=== PATIENT | male | born 1950 | race Caucasian/White ===

== ENCOUNTER → 2018-10-23 | Day surgery (SDC) | payer MEDICARE, BC ==
[~2018-10-23] MED LIST: Lactated Ringers 1,000 ML IV SCH; Midazolam 1 MG/ML 2 ML SDV ONE; Propofol 200 MG/20 ML SDV ONE; Sodium Chloride 0.9% 10 ML Syringe FLUSH PRN
--- NOTE | 2018-10-23 10:01 | PCM.PN ---
- General Info Date of Service: 10/23/18 - Review of Systems Systems Review Comment:: 68-year-old male referred for colonoscopy. It is been several years since his last colon exam. He denies any recent changes in bowel pattern. He also denies any family history of colon cancer. He is medically stable to proceed today. I reviewed the recent history and physical and no significant changes are noted. I discussed the proposed colonoscopy with the patient. Risks such as but not limited to bleeding and GI injury reviewed. He agrees to proceed. - Patient Data Vitals - Most Recent: Last Vital Signs Temp 97. F 10/23/18 09:33 Pulse 70 10/23/18 09:33 Resp 16 10/23/18 09:33 BP 133/86 10/23/18 09:33 Pulse Ox 99 10/23/18 09:33 Weight - Most Recent: 117.027 kg Med Orders - Current: Current Medications Lactated Ringer's (Ringers, Lactated) 1,000 mls @ 125 mls/hr IV ASDIRECTED SVEN Sodium Chloride (Saline Flush) 10 ml FLUSH ASDIRECTED PRN PRN Reason: Keep Vein Open Discontinued Medications Midazolam HCl (Versed 1 Mg/Ml) Confirm Administered Dose 2 mg .ROUTE .STK-MED ONE Stop: 10/23/18 08:21 Propofol (Diprivan 20 Ml) Confirm Administered Dose 200 mg .ROUTE .STK-MED ONE Stop: 10/23/18 08:21 - Problem List Review Problem List Initiated/Reviewed/Updated: Yes - Assessment Assessment:: colon cancer screening - Plan Plan:: colonoscopy
--- NOTE | 2018-10-23 10:47 | PCM.OPNOTE ---
- General Post-Op/Procedure Note Date of Surgery/Procedure: 10/23/18 Operative Procedure(s): Colonoscopy with Polypectomy Findings: Sigmoid Colon Polyp otherwise normal polyp Pre Op Diagnosis: Colon Cancer Screening Post-Op Diagnosis: Colon Polyp Anesthesia Technique: MAC Primary Surgeon: Avel Corley Pathology: Sigmoid Colon Polyp Output, Urine Amount: 0 EBL in mLs: 0 Complications: None Condition: Good
--- NOTE | 2018-10-23 12:11 | OR ---
Date of Procedure: 10/23/2018 PREOPERATIVE DIAGNOSIS: Colon cancer screening. POSTOPERATIVE DIAGNOSIS: Colon polyp. OPERATION PERFORMED: Colonoscopy with polypectomy. INDICATIONS FOR SURGERY: This 68-year-old male is here for screening colonoscopy. It has been several years since his last colon exam. FINDINGS: A single polyp was noted on today's exam. This was a 9 mm sessile slightly irregularly-shaped polyp noted in the sigmoid colon 30 cm from the anal verge. The remainder of the colon appeared normal. DESCRIPTION OF PROCEDURE: The patient was taken to the operating room. He was given intravenous sedation, and with him in the left lateral decubitus position, digital rectal exam was performed showing no rectal masses. The Olympus colonoscope was inserted into the rectum. Retroflexed examination of the rectal canal was performed. The scope was then carefully advanced up to the sigmoid level where the above-described polyp was identified. This was removed with a cautery snare and retrieved into a polyp trap. The scope was then carefully further advanced through the entire length of the colon until the cecum was reached. The acquisition of the cecum did require hand pressure, but eventually was able to be accessed and the cecum carefully examined. The ileocecal valve and appendiceal orifice were viewed and the light was noted to transilluminate the abdominal wall in the right lower quadrant. After examining the cecum, the scope was slowly withdrawn sequentially re-examining the colonic segments until the entire colon and rectum had been fully examined. The scope was removed, and the patient was taken from the operating room in satisfactory condition. ESTIMATED BLOOD LOSS: 0. COMPLICATIONS: None. PROGNOSIS: Good. CHAGO Corley MD /[id number]
== END | disposition home or self-care (01) ==
LOC: LL.SDS 09:10
PROVIDERS: ATTEND Surgery
DX: Z12.11 Encounter for screening for malignant neoplasm of colon (principal); D12.5 Benign neoplasm of sigmoid colon; I10 Essential (primary) hypertension; E78.5 Hyperlipidemia, unspecified; R73.9 Hyperglycemia, unspecified; E55.9 Vitamin D deficiency, unspecified; F32.9 Major depressive disorder, single episode, unspecified; F41.9 Anxiety disorder, unspecified; I69.354 Hemiplegia and hemiparesis following cerebral infarction affecting left non-dominant side; E66.9 Obesity, unspecified; Z68.38 Body mass index [BMI] 38.0-38.9, adult; Z79.82 Long term (current) use of aspirin; Z79.899 Other long term (current) drug therapy; Z88.1 Allergy status to other antibiotic agents; Z88.8 Allergy status to other drugs, medicaments and biological substances; Z95.1 Presence of aortocoronary bypass graft
CPT/HCPCS: 00811; 45385; J2250; J2704; J7120; 88305

== ENCOUNTER 2019-03-03 11:32 | Inpatient (IN) | payer MEDICARE, BC ==
[2019-03-03 12:03] LABS: CHLORIDE,CL 102 mmol/L (98-107); SODIUM,NA 141 mmol/L (136-145)
[2019-03-03] MEDS ORDERED: Acetaminophen 325 MG Tab PO PRN (13:00)
--- NOTE | 2019-03-03 13:27 | PCM.HP.2 ---
H&P History of Present Illness - General Date of Service: 03/03/19 Admit Problem/Dx: Admission Diagnosis/Problem Admission Diagnosis/Problem Acute renal failure Source of Information: Patient History Limitations: Reports: No Limitations - History of Present Illness Initial Comments - Free Text/Narative: Patient presents to the clinic with lower abdominal pain which started 2 weeks ago. Patient states the pain is alright in the morning but then will get worse throughout the day. Patient states having more bowel movements than usually. Last colonoscopy was 10/2018 where he had a polyp removed. Denies a fever. Patient states eating a lot of tomatoes lately. Onset of Symptoms: Reports: Gradual Duration of Symptoms: Reports: Getting Worse Location: Reports: Abdomen Quality: Reports: Ache Severity: Mild Improves with: Reports: Rest Worsens with: Reports: Movement - Related Data Allergies/Adverse Reactions: Allergies Allergy/AdvReac Type Severity Reaction Status Date / Time amoxicillin [From Augmentin] Allergy Diarrhea Verified 03/03/19 12:36 atorvastatin [From Lipitor] Allergy Body Aches Verified 03/03/19 12:36 azithromycin [From Zithromax] Allergy Arrhythmias Verified 03/03/19 12:36 ceftriaxone [From Rocephin] Allergy Hives Verified 03/03/19 12:36 clavulanic acid Allergy Diarrhea Verified 03/03/19 12:36 [From Augmentin] Home Medications: Home Meds Ascorbic Acid [Vitamin C] 1,000 mg PO DAILY 07/11/15 [History] Aspirin [Halfprin] 1 tab PO DAILY 07/11/15 [History] Citalopram Hydrobromide [Celexa] 20 mg PO DAILY 07/11/15 [History] Simvastatin [Zocor] 40 mg PO BEDTIME 07/11/15 [History] Chlorthalidone 25 mg PO DAILY 10/22/18 [History] Fenofibrate,Micronized [Fenofibrate] 134 mg PO DAILY 10/22/18 [History] Lisinopril 20 mg PO BID 10/22/18 [History] Metoprolol Tartrate 50 mg PO BID 10/22/18 [History] Tadalafil [Cialis] 10 mg PO DAILY PRN 10/22/18 [History] Ubidecarenone [Co Q-10] 2 tab PO DAILY 10/22/18 [History] Cetirizine HCl [Zyrtec] 10 mg PO DAILY 03/03/19 [History] Cholecalciferol (Vitamin D3) [Vitamin D3] 2,000 unit PO DAILY 03/03/19 [History] Ciclopirox/Ure/Camph/Menth/Euc [Ciclopirox 8% Treatment Kit] 1 applic TP DAILY PRN 03/03/19 [History] Fish Oil/DHA/EPA [Fish Oil 1,200 MG] 4 each PO DAILY 03/03/19 [History] Fluticasone Propionate [Flonase] 1 - 2 sprays .XX DAILY 03/03/19 [History] Vitamin E 1,000 unit PO DAILY 03/03/19 [History] Past Medical History Cardiovascular History: Reports: Heart Murmur, High Cholesterol, Hypertension Other Cardiovascular History: aoritic mass, had open heart surgery 1999. PVC's , bigeminy Respiratory History: Reports: Sleep Apnea Genitourinary History: Reports: Other (See Below) Other Genitourinary History: Elevated PSA with benign biopsies. Musculoskeletal History: Reports: Other (See Below) Other Musculoskeletal History: dupytrens contraction Neurological History: Reports: CVA Other Neuro History: Left sided CVA Psychiatric History: Reports: Anxiety, Depression Endocrine/Metabolic History: Reports: Obesity/BMI 30+, Vitamin D Deficiency, Other (See Below) Other Endocrine/Metabolic History: hyperglycemia - Infectious Disease History Infectious Disease History: Reports: Chicken Pox, Measles, MRSA, Mumps - Past Surgical History Other Respiratory Surgeries/Procedures: uses cpap Social & Family History - Caffeine Use Caffeine Use: Reports: Coffee Caffeine Use Comment: 1 cup coffee daily, 1 soda per week H&P Review of Systems - Review of Systems: Review Of Systems: See Below General: Reports: Weakness HEENT: Reports: No Symptoms Pulmonary: Reports: No Symptoms Cardiovascular: Reports: No Symptoms Gastrointestinal: Reports: Abdominal Pain, Flatus Genitourinary: Reports: Frequency Musculoskeletal: Reports: No Symptoms Skin: Reports: No Symptoms Psychiatric: Reports: No Symptoms Neurological: Reports: No Symptoms Hematologic/Lymphatic: Reports: No Symptoms Immunologic: Reports: No Symptoms Exam - Exam Exam: See Below - Exam Quality Assessment: DVT Prophylaxis General: Alert, Oriented, Cooperative HEENT: Conjunctiva Clear, EACs Clear, EOMI (hearing aids to bilat ears) Neck: Supple, Trachea Midline Lungs: Clear to Auscultation, Normal Respiratory Effort Cardiovascular: Regular Rate, Regular Rhythm, Normal S1, Normal S2, Systolic Murmur GI/Abdominal Exam: Normal Bowel Sounds, Soft, No Distention, Tender (tender to all quadrants, more pronouced to left lower quadrant) Back Exam: Normal Inspection, Full Range of Motion Extremities: Normal Inspection, Normal Range of Motion, Non-Tender, No Pedal Edema, Normal Capillary Refill Peripheral Pulses: 1+: Dorsalis Pedis (L), Dorsalis Pedis (R) Skin: Warm, Dry, Intact Neurological: Cranial Nerves Intact, Reflexes Equal Bilateral Neuro Extensive - Mental Status: Alert, Oriented x3, Normal Mood/Affect, Normal Cognition, Memory Intact Neuro Extensive - Motor, Sensory, Reflexes: CN II-XII Intact, Normal Gait, Normal Reflexes Psychiatric: Alert, Normal Affect, Normal Mood - Patient Data Lab Results Last 24 hrs: Laboratory Results - last 24 hr 03/03/19 03/03/19 Range/Units 11:39 11:39 WBC 7.8 (4.0-10.2) K/uL RBC 3.84 L (4.33-5.41) M/uL Hgb 12.6 L D (13.1-16.8) g/dL Hct 37.3 L (39.0-49.0) % MCV 97.1 D (84.0-98.0) fL MCH 32.8 (28.2-33.3) pg MCHC 33.8 (31.7-36.0) g/dL RDW 13.0 (11.2-14.1) % Plt Count 261 (150-350) K/uL Neut % (Auto) 62.3 (45.0-80.0) % Lymph % (Auto) 20.5 (10.0-50.0) % [place] % (Auto) 13.9 (2.0-14.0) % Eos % (Auto) 3.0 (0.0-5.0) % Baso % (Auto) 0.3 (0.0-2.0) % Neut # (Auto) 4.84 (1.40-7.00) K/uL Lymph # (Auto) 1.59 (0.50-3.50) K/uL [place] # (Auto) 1.08 H (0.00-1.00) K/uL Eos # (Auto) 0.23 (0.00-0.50) K/uL Baso # (Auto) 0.02 (0.00-0.20) K/uL Sodium 141 (136-145) mmol/L Potassium 4.3 (3.5-5.1) mmol/L Chloride 102 (98-107) mmol/L Carbon Dioxide 29.0 (21.0-32.0) mmol/L BUN 31 H (7-18) mg/dL Creatinine 2.43 H D (0.51-1.17) mg/dL Est Cr Clr Drug Dosing TNP Estimated GFR (MDRD) 27 mL/min Glucose 99 (74-106) mg/dL Calcium 10.1 (8.5-10.1) mg/dL Total Bilirubin 0.6 (0.2-1.0) mg/dL AST 14 L (15-37) U/L ALT 23 (12-78) U/L Alkaline Phosphatase 42 L (46-116) IU/L C-Reactive Protein 0.4 (<=0.9) mg/dL Total Protein 7.5 (6.4-8.2) g/dL Albumin 4.1 (3.4-5.0) g/dL Result Diagrams: 03/03/19 11:39 03/03/19 11:39 - Problem List (1) Acute renal failure (ARF) SNOMED Code(s): 95694117 ICD Code: N17.9 - ACUTE KIDNEY FAILURE, UNSPECIFIED Status: Acute Current Visit: Yes Qualifiers: Acute renal failure type: unspecified Qualified Code(s): N17.9 - Acute kidney failure, unspecified (2) Abdominal pain SNOMED Code(s): 54080765 ICD Code: R10.9 - UNSPECIFIED ABDOMINAL PAIN Status: Acute Current Visit : Yes Qualifiers: Abdominal location: lower abdomen, unspecified Qualified Code(s): R10.30 - Lower abdominal pain, unspecified (3) Hypertension SNOMED Code(s): 09882453 ICD Code: I10 - ESSENTIAL (PRIMARY) HYPERTENSION Status: Acute Current Visit: Yes Qualifiers: Hypertension type: essential hypertension Qualified Code(s): I10 - Essential (primary) hypertension Problem List Initiated/Reviewed/Updated: Yes Orders Last 24hrs: Active Orders 24 hr Category Date Time Status Patient Status [ADT] Routine ADT 03/03/19 12:46 Ordered Ambulate [RC] ASDIRECTED Care 03/03/19 12:46 Ordered Intake and Output [RC] QSHIFT Care 03/03/19 12:49 Ordered May Shower [RC] ASDIRECTED Care 03/03/19 12:46 Ordered Oxygen Therapy [RC] PRN Care 03/03/19 12:46 Ordered Peripheral IV Care [RC] . DIRECTED Care 03/03/19 12:52 Ordered Up ad Ángela [RC] ASDIRECTED Care 03/03/19 12:46 Ordered VTE/DVT Education [RC] PER UNIT ROUTINE Care 03/03/19 12:46 Ordered Vital Signs [RC] Q4H Care 03/03/19 12:46 Ordered Regular Diet [DIET] Diet 03/04/19 Breakfast Ordered Abdomen 2V AP Flat Upright [CR] Routine Exams 03/03/19 11:30 Taken Abdomen Comp [US] Routine Exams 03/03/19 12:46 Ordered C-REACTIVE PROTEIN [CHEM] DAILY Lab 03/04/19 05:11 Ordered CBC WITH AUTO DIFF [HEME] DAILY Lab 03/04/19 05:11 Ordered CBC WITH AUTO DIFF [HEME] DAILY Lab 03/05/19 05:11 Ordered CBC WITH AUTO DIFF [HEME] DAILY Lab 03/06/19 05:11 Ordered CBC WITH AUTO DIFF [HEME] DAILY Lab 03/07/19 05:11 Ordered COMPREHENSIVE METABOLIC PN,CMP [CHEM] DAILY Lab 03/04/19 05:11 Ordered COMPREHENSIVE METABOLIC PN,CMP [CHEM] DAILY Lab 03/05/19 05:11 Ordered COMPREHENSIVE METABOLIC PN,CMP [CHEM] DAILY Lab 03/06/19 05:11 Ordered COMPREHENSIVE METABOLIC PN,CMP [CHEM] DAILY Lab 03/07/19 05:11 Ordered MAGNESIUM [CHEM] Routine Lab 03/04/19 05:11 Ordered Acetaminophen [Tylenol] Med 03/03/19 12:46 Ordered 650 mg PO Q4H PRN Aspirin [Halfprin] Med 03/04/19 08:00 Ordered 81 mg PO DAILY Citalopram Hydrobromide [Celexa] Med 03/04/19 08:00 Ordered 20 mg PO DAILY Enoxaparin [Lovenox] Med 03/03/19 17:00 Ordered 30 mg SUBCUT DAILY Fluticasone Propionate [Flonase] Med 03/04/19 08:00 Ordered 1 - 2 sprays .XX DAILY Lactated Ringers @ 125 MLS/HR(1000ml) Med 03/03/19 13:00 Ordered Lactated Ringers [Ringers, Lactated] 1,000 ml IV ASDIRECTED Metoprolol Tartrate [Lopressor] Med 03/03/19 18:00 Ordered 50 mg PO BID Sodium Chloride 0.9% [Saline Flush] Med 03/03/19 12:46 Ordered 10 ml FLUSH ASDIRECTED PRN Peripheral IV Insertion Adult [OM.PC] Routine Oth 03/03/19 12:46 Ordered Resuscitation Status Routine Resus Stat 03/03/19 12:46 Ordered Medication Orders Acetaminophen (Tylenol) 650 mg PO Q4H PRN PRN Reason: Pain (Mild 1-3)/fever Aspirin (Halfprin) 81 mg PO DAILY SVEN Enoxaparin Sodium (Lovenox) 30 mg SUBCUT DAILY@1700 SVEN Fluticasone Propionate (Flonase) gm .XX DAILY SVEN Lactated Ringer's (Ringers, Lactated) 1,000 mls @ 125 mls/hr IV ASDIRECTED SVEN Metoprolol Tartrate (Lopressor) 50 mg PO BID SVEN Non-Formulary Medication (Citalopram Hydrobromide [Celexa]) 20 mg PO DAILY SVEN Sodium Chloride (Saline Flush) 10 ml FLUSH ASDIRECTED PRN PRN Reason: Keep Vein Open Assessment/Plan Comment:: Patient is admitted for IV fluids due to acute renal failure. Will hold lisinopril and chlorthalidone, patient took the medications today. Will order abdominal ultrasound to check for blockage within the kidneys and bladder. Patient will probably need CT scan to further evaluate, will hydrate to see if kidney function will improve. Will monitor blood pressures due to change in medications. Recheck labs in the morning. Patient agreed to hospitalization in [place] but if condition declines is wanting to be transferred to [place]. Karina Mcfarland CNP - Mortality Measure Prognosis:: Good
[2019-03-03] MEDS: Lactated Ringers 1,000 ML IV SCH ×2 (14:10→22:11)
[2019-03-03] MEDS ORDERED: Enoxaparin 30 MG/0.3 ML Syringe SUBCUT SCH (17:00)
[2019-03-03] MEDS: Metoprolol Tartrate 50 MG Tab PO SCH (17:37)
[2019-03-03] MEDS ORDERED: Temazepam 15 MG Cap PO PRN (21:43)
[2019-03-04] MEDS: Lactated Ringers 1,000 ML IV SCH ×2 (06:29→14:44)
[2019-03-04] MEDS ORDERED: Aspirin 81 MG Tab.EC PO SCH (08:00)
[2019-03-04] MEDS ORDERED: Citalopram 20 MG Tab PO SCH (08:00)
[2019-03-04] MEDS: Fluticasone Propionate Nasal Spray 16 GM Bottle NASBOTH SCH (08:21)
[2019-03-04] MEDS: Metoprolol Tartrate 50 MG Tab PO SCH ×2 (08:21→17:28)
[2019-03-04] MEDS ORDERED: Diatrizoate Meglumine/Diatrizoate Sodium 37% 30 ML Bottle PO ONE (09:53)
[2019-03-04] MEDS ORDERED: Cyanocobalamin (Vitamin B12) 1,000 MCG/ML SDV IM ONE (14:30)
--- NOTE | 2019-03-04 17:04 | PCM.PN ---
- General Info Date of Service: 03/04/19 Admission Dx/Problem (Free Text): Admission Diagnosis/Problem Admission Diagnosis/Problem Acute renal failure Functional Status: Reports: Pain Controlled, Tolerating Diet, Ambulating - Review of Systems General: Reports: No Symptoms HEENT: Reports: No Symptoms Pulmonary: Reports: No Symptoms Cardiovascular: Reports: No Symptoms Gastrointestinal: Reports: Diarrhea Genitourinary: Reports: No Symptoms Musculoskeletal: Reports: No Symptoms Skin: Reports: No Symptoms Neurological: Reports: No Symptoms Psychiatric: Reports: No Symptoms - Patient Data Vitals - Most Recent: Last Vital Signs Temp 98.2 F 03/04/19 15:49 Pulse 69 03/04/19 15:49 Resp 17 03/04/19 15:49 BP 133/67 03/04/19 15:49 Pulse Ox 99 03/04/19 15:49 Weight - Most Recent: 257 lb 11.2 oz I&O - Last 24 Hours: Intake & Output 03/04/19 03/04/19 03/04/19 06:59 14:59 22:59 Intake Total 1564 Output Total 1400 Balance 1564 -1400 Lab Results Last 24 Hours: Laboratory Results - last 24 hr 03/04/19 03/04/19 03/04/19 Range/Units 07:05 07:05 07:05 WBC 6.2 (4.0-10.2) K/uL RBC 3.47 L (4.33-5.41) M/uL Hgb 11.3 L (13.1-16.8) g/dL Hct 33.6 L (39.0-49.0) % MCV 96.8 (84.0-98.0) fL MCH 32.6 (28.2-33.3) pg MCHC 33.6 (31.7-36.0) g/dL RDW 12.7 (11.2-14.1) % Plt Count 224 (150-350) K/uL Neut % (Auto) 59.9 (45.0-80.0) % Lymph % (Auto) 24.2 (10.0-50.0) % [place] % (Auto) 12.3 (2.0-14.0) % Eos % (Auto) 3.1 (0.0-5.0) % Baso % (Auto) 0.5 (0.0-2.0) % Neut # (Auto) 3.72 (1.40-7.00) K/uL Lymph # (Auto) 1.50 (0.50-3.50) K/uL [place] # (Auto) 0.76 (0.00-1.00) K/uL Eos # (Auto) 0.19 (0.00-0.50) K/uL Baso # (Auto) 0.03 (0.00-0.20) K/uL Sodium 139 (136-145) mmol/L Potassium 3.7 (3.5-5.1) mmol/L Chloride 101 (98-107) mmol/L Carbon Dioxide 25.0 (21.0-32.0) mmol/L BUN 30 H (7-18) mg/dL Creatinine 1.79 H (0.51-1.17) mg/dL Est Cr Clr Drug Dosing 39.50 mL/min Estimated GFR (MDRD) 38 mL/min Glucose 104 (74-106) mg/dL Lactic Acid 0.9 (0.4-2.0) mmol/L Calcium 9.1 (8.5-10.1) mg/dL Magnesium 1.5 L (1.8-2.4) mg/dL Iron (50-175) ug/dL TIBC (250-450) ug/dL % Saturation Ferritin (8-388) ng/mL Total Bilirubin 0.6 (0.2-1.0) mg/dL AST 12 L (15-37) U/L ALT 19 (12-78) U/L Alkaline Phosphatase 34 L (46-116) IU/L Creatine Kinase 52 (26-308) U/L C-Reactive Protein 0.4 (<=0.9) mg/dL Total Protein 6.4 (6.4-8.2) g/dL Albumin 3.5 (3.4-5.0) g/dL Vitamin B12 (193-986) pg/mL Vitamin D 25-Hydroxy (30-100) ng/mL Folate (8.6-58.9) ng/mL 03/04/19 03/04/19 03/04/19 Range/Units 07:05 07:05 07:05 WBC (4.0-10.2) K/uL RBC (4.33-5.41) M/uL Hgb (13.1-16.8) g/dL Hct (39.0-49.0) % MCV (84.0-98.0) fL MCH (28.2-33.3) pg MCHC (31.7-36.0) g/dL RDW (11.2-14.1) % Plt Count (150-350) K/uL Neut % (Auto) (45.0-80.0) % Lymph % (Auto) (10.0-50.0) % [place] % (Auto) (2.0-14.0) % Eos % (Auto) (0.0-5.0) % Baso % (Auto) (0.0-2.0) % Neut # (Auto) (1.40-7.00) K/uL Lymph # (Auto) (0.50-3.50) K/uL [place] # (Auto) (0.00-1.00) K/uL Eos # (Auto) (0.00-0.50) K/uL Baso # (Auto) (0.00-0.20) K/uL Sodium (136-145) mmol/L Potassium (3.5-5.1) mmol/L Chloride (98-107) mmol/L Carbon Dioxide (21.0-32.0) mmol/L BUN (7-18) mg/dL Creatinine (0.51-1.17) mg/dL Est Cr Clr Drug Dosing mL/min Estimated GFR (MDRD) mL/min Glucose (74-106) mg/dL Lactic Acid (0.4-2.0) mmol/L Calcium (8.5-10.1) mg/dL Magnesium (1.8-2.4) mg/dL Iron 84 (50-175) ug/dL TIBC 340 (250-450) ug/dL % Saturation [id number] Ferritin 289 (8-388) ng/mL Total Bilirubin (0.2-1.0) mg/dL AST (15-37) U/L ALT (12-78) U/L Alkaline Phosphatase (46-116) IU/L Creatine Kinase (26-308) U/L C-Reactive Protein (<=0.9) mg/dL Total Protein (6.4-8.2) g/dL Albumin (3.4-5.0) g/dL Vitamin B12 223 (193-986) pg/mL Vitamin D 25-Hydroxy 42.1 (30-100) ng/mL Folate 14.7 (8.6-58.9) ng/mL Med Orders - Current: Current Medications Acetaminophen (Tylenol) 650 mg PO Q4H PRN PRN Reason: Pain (Mild 1-3)/fever Citalopram Hydrobromide (Celexa) 20 mg PO DAILY [facility] Last Admin: 03/04/19 08:21 Dose: 20 mg Fluticasone Propionate (Flonase) 0 gm NASBOTH DAILY [facility] Last Admin: 03/04/19 08:21 Dose: 1 spray Lactated Ringer's (Ringers, Lactated) 1,000 mls @ 125 mls/hr IV ASDIRECTED [facility], [facility]1983 Last Admin: 03/04/19 14:44 Dose: 125 mls/hr Metoprolol Tartrate (Lopressor) 50 mg PO BID [facility] Last Admin: 03/04/19 08:21 Dose: 50 mg Sodium Chloride (Saline Flush) 10 ml FLUSH ASDIRECTED PRN PRN Reason: Keep Vein Open Discontinued Medications Aspirin (Halfprin) 81 mg PO DAILY [facility] Cyanocobalamin (Vitamin B12) 1,000 mcg IM ONETIME ONE Stop: 03/04/19 14:31 Last Admin: 03/04/19 15:24 Dose: 1,000 mcg Diatrizoate Meglum/Diatrizoate Sod (Gastrografin 37%) 30 ml PO ONETIME ONE Stop: 03/04/19 09:54 Last Admin: 03/04/19 11:40 Dose: 30 ml Enoxaparin Sodium (Lovenox) 30 mg SUBCUT DAILY@1700 [facility] Last Admin: 03/03/19 17:37 Dose: 30 mg - Exam Quality Assessment: DVT Prophylaxis General: Alert, Oriented, Cooperative, No Acute Distress HEENT: Pupils Equal, Pupils Reactive, EOMI, Mucous Membr. Moist/[place] Neck: Supple, Trachea Midline, No JVD, No Thyromegaly Lungs: Clear to Auscultation, Normal Respiratory Effort Cardiovascular: Regular Rate, Regular Rhythm GI/Abdominal Exam: Normal Bowel Sounds, Soft, No Organomegaly, No Distention, Tender (tender to lower abdominal areas bilat) Extremities: Normal Inspection, Normal Range of Motion, Non-Tender, No Pedal Edema, Normal Capillary Refill Peripheral Pulses: 1+: Dorsalis Pedis (L), Dorsalis Pedis (R) Skin: Warm, Dry, Intact Neurological: No New Focal Deficit Psy/Mental Status: Alert, Normal Affect, Normal Mood - Problem List & Annotations (1) Acute renal failure (ARF) SNOMED Code(s): 59377846 Code(s): N17.9 - ACUTE KIDNEY FAILURE, UNSPECIFIED Status: Acute Current Visit: Yes Qualifiers: Acute renal failure type: unspecified Qualified Code(s): N17.9 - Acute kidney failure, unspecified (2) Abdominal pain SNOMED Code(s): 66954500 Code(s): R10.9 - UNSPECIFIED ABDOMINAL PAIN Status: Acute Current Visit: Yes Qualifiers: Abdominal location: lower abdomen, unspecified Qualified Code(s): R10.30 - Lower abdominal pain, unspecified (3) Hypertension SNOMED Code(s): 82351077 Code(s): I10 - ESSENTIAL (PRIMARY) HYPERTENSION Status: Acute Current Visit: Yes Qualifiers: Hypertension type: essential hypertension Qualified Code(s): I10 - Essential (primary) hypertension - Problem List Review Problem List Initiated/Reviewed/Updated: Yes - My Orders Last 24 Hours: My Active Orders 03/03/19 18:00 Metoprolol Tartrate [Lopressor] 50 mg PO BID 03/03/19 Dinner Regular Diet [DIET] 03/04/19 08:00 Citalopram [Celexa] 20 mg PO DAILY Fluticasone Propionate [Flonase] 0 gm NASBOTH DAILY 03/05/19 05:11 CBC WITH AUTO DIFF [HEME] DAILY COMPREHENSIVE METABOLIC PN,CMP [CHEM] DAILY 03/06/19 05:11 CBC WITH AUTO DIFF [HEME] DAILY COMPREHENSIVE METABOLIC PN,CMP [CHEM] DAILY 03/07/19 05:11 CBC WITH AUTO DIFF [HEME] DAILY COMPREHENSIVE METABOLIC PN,CMP [CHEM] DAILY - Plan Plan:: Patient is admitted for IV fluids due to acute renal failure. Will hold lisinopril and chlorthalidone, patient took the medications today. Will order abdominal ultrasound to check for blockage within the kidneys and bladder. Patient will probably need CT scan to further evaluate, will hydrate to see if kidney function will improve. Will monitor blood pressures due to change in medications. Recheck labs in the morning. Patient agreed to hospitalization in [place] but if condition declines is wanting to be transferred to [place]. Karina Mcfarland CNP 03/04/2019 Patient is feeling a little better but had some diarrhea today from 10am to 3pm , before having the CT scan. Ultrasound and CT scan reviewed with the patient. No acute findings noted on the tests. Blood pressure holding with metoprolol. Continue to hold Lisinopril and chlorthalidone. Patient had not feeling well for 2 weeks and had diarrhea. Will continue with IV fluids, monitor blood pressure and kidney function. Possible discharge tomorrow. Patient states only drinking three 6 ounces of fluid a day. Will consult with Dr Margie Mcfarland,[facility]
[2019-03-04] MEDS ORDERED: Ciprofloxacin in D5W 400 MG in Premix Bag 1 BAG IV ONE ×4 (21:01→23:00)
[2019-03-04] MEDS: metroNIDAZOLE/Normal Saline 500 MG in Premix Bag 1 BAG IV SCH (21:51)
[2019-03-04] MEDS: Sodium Chloride 0.9% 10 ML Syringe FLUSH PRN (22:54)
[2019-03-05] MEDS: metroNIDAZOLE/Normal Saline 500 MG in Premix Bag 1 BAG IV SCH ×3 (06:14→20:42)
[2019-03-05] MEDS: Fluticasone Propionate Nasal Spray 16 GM Bottle NASBOTH SCH (07:27)
[2019-03-05] MEDS: Metoprolol Tartrate 50 MG Tab PO SCH ×2 (07:28→18:20)
[2019-03-05] MEDS: Sodium Chloride 0.9% 10 ML Syringe FLUSH PRN ×3 (07:28→20:44)
[2019-03-05] MEDS ORDERED: Sodium Chloride 0.9% 10 ML Syringe FLUSH SCH (08:00)
[2019-03-05] MEDS ORDERED: Furosemide 40 MG/4 ML VIAL IVPUSH ONE (08:00)
[2019-03-05] MEDS ORDERED: Ciprofloxacin in D5W 400 MG in Premix Bag 1 BAG IV SCH ×2 (12:00)
--- NOTE | 2019-03-05 12:27 | PCM.PN ---
- General Info Date of Service: 03/05/19 Admission Dx/Problem (Free Text): Admission Diagnosis/Problem Admission Diagnosis/Problem Acute renal failure Functional Status: Reports: Pain Controlled, Tolerating Diet, Urinating - Review of Systems General: Reports: No Symptoms HEENT: Reports: No Symptoms Pulmonary: Reports: No Symptoms Cardiovascular: Reports: No Symptoms Gastrointestinal: Reports: No Symptoms Genitourinary: Reports: No Symptoms Musculoskeletal: Reports: No Symptoms Skin: Reports: No Symptoms Neurological: Reports: No Symptoms Psychiatric: Reports: No Symptoms - Patient Data Vitals - Most Recent: Last Vital Signs Temp 98.4 F 03/05/19 11:18 Pulse 57 L 03/05/19 11:18 Resp 17 03/05/19 11:18 BP 143/73 H 03/05/19 11:18 Pulse Ox 96 03/05/19 11:18 Weight - Most Recent: 257 lb 11.2 oz I&O - Last 24 Hours: Intake & Output 03/04/19 03/05/19 03/05/19 22:59 06:59 14:59 Intake Total 2033 300 640 Output Total 0510 722 6974 Balance 1033 -100 -560 Lab Results Last 24 Hours: Laboratory Results - last 24 hr 03/05/19 03/05/19 Range/Units 07:03 07:03 WBC 6.4 (4.0-10.2) K/uL RBC 3.51 L (4.33-5.41) M/uL Hgb 11.5 L (13.1-16.8) g/dL Hct 34.2 L (39.0-49.0) % MCV 97.4 (84.0-98.0) fL MCH 32.8 (28.2-33.3) pg MCHC 33.6 (31.7-36.0) g/dL RDW 12.7 (11.2-14.1) % Plt Count 219 (150-350) K/uL Neut % (Auto) 61.3 (45.0-80.0) % Lymph % (Auto) 21.5 (10.0-50.0) % [place] % (Auto) 13.8 (2.0-14.0) % Eos % (Auto) 3.1 (0.0-5.0) % Baso % (Auto) 0.3 (0.0-2.0) % Neut # (Auto) 3.91 (1.40-7.00) K/uL Lymph # (Auto) 1.37 (0.50-3.50) K/uL [place] # (Auto) 0.88 (0.00-1.00) K/uL Eos # (Auto) 0.20 (0.00-0.50) K/uL Baso # (Auto) 0.02 (0.00-0.20) K/uL Sodium 142 (136-145) mmol/L Potassium 4.1 (3.5-5.1) mmol/L Chloride 104 (98-107) mmol/L Carbon Dioxide 28.8 (21.0-32.0) mmol/L BUN 22 H (7-18) mg/dL Creatinine 1.57 H (0.51-1.17) mg/dL Est Cr Clr Drug Dosing 45.03 mL/min Estimated GFR (MDRD) 44 mL/min Glucose 119 H (74-106) mg/dL Calcium 9.0 (8.5-10.1) mg/dL Total Bilirubin 0.4 (0.2-1.0) mg/dL AST 12 L (15-37) U/L ALT 20 (12-78) U/L Alkaline Phosphatase 37 L (46-116) IU/L Total Protein 6.5 (6.4-8.2) g/dL Albumin 3.4 (3.4-5.0) g/dL Amylase 55 (25-115) U/L Med Orders - Current: Current Medications Acetaminophen (Tylenol) 650 mg PO Q4H PRN PRN Reason: Pain (Mild 1-3)/fever Fluticasone Propionate (Flonase) 0 gm NASBOTH DAILY [facility] Last Admin: 03/05/19 07:27 Dose: 1 spray Metronidazole 500 mg/ Premix 100 mls @ 100 mls/hr IV Q8H [facility] Last Admin: 03/05/19 06:14 Dose: 100 mls/hr Ciprofloxacin/Dextrose 400 mg/ (Premix) 200 mls @ 200 mls/hr IV Q12H [facility] Metoprolol Tartrate (Lopressor) 50 mg PO BID [facility] Last Admin: 03/05/19 07:28 Dose: 50 mg Sodium Chloride (Saline Flush) 10 ml FLUSH ASDIRECTED PRN PRN Reason: Keep Vein Open Last Admin: 03/05/19 07:28 Dose: 10 ml Discontinued Medications Aspirin (Halfprin) 81 mg PO DAILY [facility] Citalopram Hydrobromide (Celexa) 20 mg PO DAILY [facility] Last Admin: 03/04/19 08:21 Dose: 20 mg Cyanocobalamin (Vitamin B12) 1,000 mcg IM ONETIME ONE Stop: 03/04/19 14:31 Last Admin: 03/04/19 15:24 Dose: 1,000 mcg Diatrizoate Meglum/Diatrizoate Sod (Gastrografin 37%) 30 ml PO ONETIME ONE Stop: 03/04/19 09:54 Last Admin: 03/04/19 11:40 Dose: 30 ml Enoxaparin Sodium (Lovenox) 30 mg SUBCUT DAILY@1700 [facility] Last Admin: 03/03/19 17:37 Dose: 30 mg Furosemide (Lasix) 40 mg IVPUSH ONETIME ONE Stop: 03/05/19 08:01 Last Admin: 03/05/19 07:27 Dose: 40 mg Lactated Ringer's (Ringers, Lactated) 1,000 mls @ 125 mls/hr IV ASDIRECTED [facility] Last Admin: 03/04/19 14:44 Dose: 125 mls/hr Ciprofloxacin/Dextrose 400 mg/ (Premix) 200 mls @ 200 mls/hr IV ONETIME ONE Stop: 03/04/19 23:59 Last Admin: 03/04/19 22:53 Dose: 200 mls/hr Sodium Chloride (Saline Flush) 10 ml FLUSH Q12HR [facility] - Exam General: Alert, Cooperative, No Acute Distress HEENT: Mucous Membr. Moist/[place] Neck: Trachea Midline, No JVD Lungs: Clear to Auscultation, Normal Respiratory Effort Cardiovascular: Regular Rate, Regular Rhythm GI/Abdominal Exam: Normal Bowel Sounds, Soft, Non-Tender, No Organomegaly, No Distention, No Mass (Male) Exam: Deferred Back Exam: Normal Inspection Extremities: Normal Inspection Skin: Warm, Dry, Intact Neurological: No New Focal Deficit Psy/Mental Status: Alert, Normal Affect, Normal Mood - Problem List & Annotations (1) Gastroenteritis, infectious SNOMED Code(s): 18467122 Code(s): A09 - INFECTIOUS GASTROENTERITIS AND COLITIS, UNSPECIFIED Status: Acute Priority: High Current Visit: Yes (2) Acute renal failure (ARF) SNOMED Code(s): 19792840 Code(s): N17.9 - ACUTE KIDNEY FAILURE, UNSPECIFIED Status: Acute Current Visit: Yes Qualifiers: Acute renal failure type: with acute tubular necrosis Qualified Code(s): N17.0 - Acute kidney failure with tubular necrosis (3) Abdominal pain SNOMED Code(s): 20164221 Code(s): R10.9 - UNSPECIFIED ABDOMINAL PAIN Status: Acute Current Visit: Yes Qualifiers: Abdominal location: lower abdomen, unspecified Qualified Code(s): R10.30 - Lower abdominal pain, unspecified (4) Hypertension SNOMED Code(s): 85581041 Code(s): I10 - ESSENTIAL (PRIMARY) HYPERTENSION Status: Acute Current Visit: Yes Qualifiers: Hypertension type: essential hypertension Qualified Code(s): I10 - Essential (primary) hypertension (5) Reducible left inguinal hernia SNOMED Code(s): 633720108 Code(s): K40.90 - UNIL INGUINAL HERNIA, W/O OBST OR GANGR, NOT SPCF RECUR Status: Acute Priority: Low Current Visit: Yes (6) Vitamin B 12 deficiency SNOMED Code(s): 544255230 Code(s): E53.8 - DEFICIENCY OF OTHER SPECIFIED B GROUP VITAMINS Status: Acute Priority: High Current Visit: Yes - Problem List Review Problem List Initiated/Reviewed/Updated: Yes - My Orders Last 24 Hours: My Active Orders 03/04/19 18:50 Vital Signs [RC] QID 03/04/19 21:00 metroNIDAZOLE/Normal Saline [Flagyl 500 MG in NS 100 ML] 500 mg Premix Bag 1 bag IV Q8H 03/04/19 Dinner Heart Healthy Diet [DIET] 03/05/19 08:00 Notify Provider Consults [RC] ASDIRECTED Consult to Physician [CONS] Routine 03/05/19 12:00 Ciprofloxacin in D5W [Cipro in D5W 400 MG/200 ML] 400 mg Premix Bag 1 bag IV Q12H - Plan Plan:: Patient is admitted for IV fluids due to acute renal failure. Will hold lisinopril and chlorthalidone, patient took the medications today. Will order abdominal ultrasound to check for blockage within the kidneys and bladder. Patient will probably need CT scan to further evaluate, will hydrate to see if kidney function will improve. Will monitor blood pressures due to change in medications. Recheck labs in the morning. Patient agreed to hospitalization in [place] but if condition declines is wanting to be transferred to [place]. Karina Mcfarland CNP 03/04/2019 Patient is feeling a little better but had some diarrhea today from 10am to 3pm , before having the CT scan. Ultrasound and CT scan reviewed with the patient. No acute findings noted on the tests. Blood pressure holding with metoprolol. Continue to hold Lisinopril and chlorthalidone. Patient had not feeling well for 2 weeks and had diarrhea. Will continue with IV fluids, monitor blood pressure and kidney function. Possible discharge tomorrow. Patient states only drinking three 6 ounces of fluid a day. Will consult with Dr Margie Mcfarland,DEISI 03/05/19 Margie Hernandez MD He does feel better today. No pain. Dr. Wylie did evaluate. Blood pressure acceptable range. Kidney status continues to improve. Continue IV antibiotics and continue off antihypertensives and continue monitoring blood pressure. B12 blood level low and he has had shot.
[2019-03-05] MEDS: Ciprofloxacin in D5W 400 MG in Premix Bag 1 BAG IV SCH ×2 (14:30)
[2019-03-06] MEDS: Sodium Chloride 0.9% 10 ML Syringe FLUSH PRN ×3 (02:55→12:52)
[2019-03-06] MEDS: Ciprofloxacin in D5W 400 MG in Premix Bag 1 BAG IV SCH ×4 (02:56→13:57)
[2019-03-06] MEDS: metroNIDAZOLE/Normal Saline 500 MG in Premix Bag 1 BAG IV SCH ×2 (04:00→12:52)
[2019-03-06] MEDS: Fluticasone Propionate Nasal Spray 16 GM Bottle NASBOTH SCH (08:05)
[2019-03-06] MEDS: Metoprolol Tartrate 50 MG Tab PO SCH (08:06)
--- NOTE | 2019-03-06 09:38 | PN ---
Date of Service: 03/05/2019 HISTORY: This 69-year-old gentleman is seen in consultation from Dr. Lupillo Hernandez for evaluation of a 10 to 14 day history of abdominal pain. This was located in his lower abdomen as aching sensation, but not a sharp pain. He denies any other symptoms such as nausea, vomiting, fevers, sweats or chills. He did have some diarrhea yesterday after CT prep, but had not had diarrhea prior to that. He has been in the hospital for 2 days and was started on some Cipro and Flagyl last night. He is now pain free. His appetite is good and he is hungry. He denies any upper abdominal pain or GERD. Denies any urinary symptoms. PAST MEDICAL HISTORY: Reviewed. He has not had any previous abdominal surgeries. A CT scan and ultrasound reports were reviewed. These do not show any concerning findings. Laboratory work is also reviewed. White blood cell count has been normal. Hemoglobin has been normal and was 11.5 today. The creatinine was elevated upon admission at 2.43 and is now down to 1.57. Liver function tests were not elevated. PHYSICAL EXAMINATION: GENERAL: Reveals a pleasant gentleman resting in bed comfortably. He denies any pain or other symptoms at this time. VITAL SIGNS: Reviewed and within normal limits. He has been afebrile. LUNGS: Clear. Respirations are unlabored. HEART: Regular rate and rhythm without murmur. ABDOMEN: Obese, soft, and nontender. I do not feel any masses or hernias. CT scan does show a small fat containing hernia, but this was not palpable or symptomatic. ASSESSMENT: Abdominal pain, resolved. PLAN: Findings were reviewed with the patient. He had his last colonoscopy 4 months ago and had a small polyp removed. No diverticulosis was seen. There is no evidence of diverticulitis on the CT scan. I do not find a reason to continue IV antibiotics as there appears to be no source of infection. I do not feel an upper endoscopy is necessary since he does not have any upper abdominal symptoms. It should be safe for him. There are no surgical issues present at this time. He should be ready for discharge today if okay with Dr. Lupillo Hernandez. CHAGO VIEIRA MD /[id number]
[2019-03-06] MEDS ORDERED: Potassium Chloride 20 MEQ Tab.ER PO ONE (12:15)
--- NOTE | 2019-03-06 15:25 | PCM.PN ---
- General Info Date of Service: 03/06/19 Admission Dx/Problem (Free Text): Admission Diagnosis/Problem Admission Diagnosis/Problem Acute renal failure Functional Status: Reports: Pain Controlled, Tolerating Diet, Ambulating, Urinating - Review of Systems General: Reports: No Symptoms HEENT: Reports: No Symptoms Pulmonary: Reports: No Symptoms Cardiovascular: Reports: No Symptoms Gastrointestinal: Reports: No Symptoms Genitourinary: Reports: No Symptoms Musculoskeletal: Reports: No Symptoms Skin: Reports: No Symptoms Neurological: Reports: No Symptoms Psychiatric: Reports: No Symptoms - Patient Data Vitals - Most Recent: Last Vital Signs Temp 98.3 F 03/06/19 12:00 Pulse 64 03/06/19 12:00 Resp 17 03/06/19 12:00 BP 137/71 03/06/19 12:00 Pulse Ox 98 03/06/19 12:00 Weight - Most Recent: 257 lb 11.2 oz I&O - Last 24 Hours: Intake & Output 03/06/19 03/06/19 03/06/19 06:59 14:59 22:59 Intake Total 400 600 Output Total 750 Balance 400 -150 Lab Results Last 24 Hours: Laboratory Results - last 24 hr 03/06/19 03/06/19 Range/Units 07:40 07:40 WBC 7.3 (4.0-10.2) K/uL RBC 3.78 L (4.33-5.41) M/uL Hgb 12.4 L (13.1-16.8) g/dL Hct 36.9 L (39.0-49.0) % MCV 97.6 (84.0-98.0) fL MCH 32.8 (28.2-33.3) pg MCHC 33.6 (31.7-36.0) g/dL RDW 12.9 (11.2-14.1) % Plt Count 252 (150-350) K/uL Neut % (Auto) 63.4 (45.0-80.0) % Lymph % (Auto) 21.4 (10.0-50.0) % [place] % (Auto) 11.6 (2.0-14.0) % Eos % (Auto) 3.3 (0.0-5.0) % Baso % (Auto) 0.3 (0.0-2.0) % Neut # (Auto) 4.65 (1.40-7.00) K/uL Lymph # (Auto) 1.57 (0.50-3.50) K/uL [place] # (Auto) 0.85 (0.00-1.00) K/uL Eos # (Auto) 0.24 (0.00-0.50) K/uL Baso # (Auto) 0.02 (0.00-0.20) K/uL Sodium 140 (136-145) mmol/L Potassium 3.4 L (3.5-5.1) mmol/L Chloride 100 (98-107) mmol/L Carbon Dioxide 29.2 (21.0-32.0) mmol/L BUN 21 H (7-18) mg/dL Creatinine 1.59 H (0.51-1.17) mg/dL Est Cr Clr Drug Dosing 44.47 mL/min Estimated GFR (MDRD) 44 mL/min Glucose 128 H (74-106) mg/dL Calcium 9.8 (8.5-10.1) mg/dL Total Bilirubin 0.5 (0.2-1.0) mg/dL AST 18 (15-37) U/L ALT 23 (12-78) U/L Alkaline Phosphatase 40 L (46-116) IU/L Total Protein 7.3 (6.4-8.2) g/dL Albumin 3.8 (3.4-5.0) g/dL Med Orders - Current: Current Medications Acetaminophen (Tylenol) 650 mg PO Q4H PRN PRN Reason: Pain (Mild 1-3)/fever Fluticasone Propionate (Flonase) 0 gm NASBOTH DAILY [facility] Last Admin: 03/06/19 08:05 Dose: 1 spray Metronidazole 500 mg/ Premix 100 mls @ 100 mls/hr IV Q8H [facility] Last Admin: 03/06/19 12:52 Dose: 100 mls/hr Ciprofloxacin/Dextrose 400 mg/ (Premix) 200 mls @ 200 mls/hr IV Q12H [facility] Last Admin: 03/06/19 13:57 Dose: 200 mls/hr Metoprolol Tartrate (Lopressor) 50 mg PO BID [facility] Last Admin: 03/06/19 08:06 Dose: 50 mg Sodium Chloride (Saline Flush) 10 ml FLUSH ASDIRECTED PRN PRN Reason: Keep Vein Open Last Admin: 03/06/19 12:52 Dose: 10 ml Discontinued Medications Aspirin (Halfprin) 81 mg PO DAILY [facility] Citalopram Hydrobromide (Celexa) 20 mg PO DAILY [facility] Last Admin: 03/04/19 08:21 Dose: 20 mg Cyanocobalamin (Vitamin B12) 1,000 mcg IM ONETIME ONE Stop: 03/04/19 14:31 Last Admin: 03/04/19 15:24 Dose: 1,000 mcg Diatrizoate Meglum/Diatrizoate Sod (Gastrografin 37%) 30 ml PO ONETIME ONE Stop: 03/04/19 09:54 Last Admin: 03/04/19 11:40 Dose: 30 ml Enoxaparin Sodium (Lovenox) 30 mg SUBCUT DAILY@1700 [facility] Last Admin: 03/03/19 17:37 Dose: 30 mg Furosemide (Lasix) 40 mg IVPUSH ONETIME ONE Stop: 03/05/19 08:01 Last Admin: 03/05/19 07:27 Dose: 40 mg Lactated Ringer's (Ringers, Lactated) 1,000 mls @ 125 mls/hr IV ASDIRECTED [facility] Last Admin: 03/04/19 14:44 Dose: 125 mls/hr Ciprofloxacin/Dextrose 400 mg/ (Premix) 200 mls @ 200 mls/hr IV ONETIME ONE Stop: 03/04/19 23:59 Last Admin: 03/04/19 22:53 Dose: 200 mls/hr Ciprofloxacin/Dextrose 400 mg/ (Premix) 200 mls @ 200 mls/hr IV Q12H [facility] Last Admin: 03/05/19 13:13 Dose: Not Given Potassium Chloride (Klor-Con M20) 20 meq PO ONETIME ONE Stop: 03/06/19 12:16 Last Admin: 03/06/19 12:51 Dose: 20 meq Sodium Chloride (Saline Flush) 10 ml FLUSH Q12HR [facility] - Exam General: Alert, No Acute Distress HEENT: Mucous Membr. Moist/[place] Neck: Trachea Midline, No JVD Lungs: Clear to Auscultation, Normal Respiratory Effort Cardiovascular: Regular Rate, Regular Rhythm GI/Abdominal Exam: Normal Bowel Sounds, Soft, Non-Tender, No Distention (Male) Exam: Deferred Back Exam: Normal Inspection Extremities: Normal Inspection, Non-Tender Skin: Warm, Dry, Intact Neurological: No New Focal Deficit Psy/Mental Status: Alert, Normal Affect, Normal Mood - Problem List & Annotations (1) Gastroenteritis, infectious SNOMED Code(s): 30101265 Code(s): A09 - INFECTIOUS GASTROENTERITIS AND COLITIS, UNSPECIFIED Status: Acute Priority: High Current Visit: Yes (2) Acute renal failure (ARF) SNOMED Code(s): 90493044 Code(s): N17.9 - ACUTE KIDNEY FAILURE, UNSPECIFIED Status: Acute Current Visit: Yes Qualifiers: Acute renal failure type: with acute tubular necrosis Qualified Code(s): N17.0 - Acute kidney failure with tubular necrosis (3) Abdominal pain SNOMED Code(s): 93314221 Code(s): R10.9 - UNSPECIFIED ABDOMINAL PAIN Status: Acute Current Visit: Yes Qualifiers: Abdominal location: lower abdomen, unspecified Qualified Code(s): R10.30 - Lower abdominal pain, unspecified (4) Hypertension SNOMED Code(s): 21308078 Code(s): I10 - ESSENTIAL (PRIMARY) HYPERTENSION Status: Acute Current Visit: Yes Qualifiers: Hypertension type: essential hypertension Qualified Code(s): I10 - Essential (primary) hypertension (5) Reducible left inguinal hernia SNOMED Code(s): 178278787 Code(s): K40.90 - UNIL INGUINAL HERNIA, W/O OBST OR GANGR, NOT SPCF RECUR Status: Acute Priority: Low Current Visit: Yes (6) Vitamin B 12 deficiency SNOMED Code(s): 318876912 Code(s): E53.8 - DEFICIENCY OF OTHER SPECIFIED B GROUP VITAMINS Status: Acute Priority: High Current Visit: Yes (7) Hypokalemia SNOMED Code(s): 28892021 Code(s): E87.6 - HYPOKALEMIA Status: Acute Priority: High Current Visit : Yes - Problem List Review Problem List Initiated/Reviewed/Updated: Yes - My Orders Last 24 Hours: My Active Orders 03/06/19 15:13 Discontinue Saline Lock [Peripheral IV Discontinue] [OM.PC] Routine 03/06/19 15:19 Ready for Discharge [RC] PER UNIT ROUTINE - Plan Plan:: Patient is admitted for IV fluids due to acute renal failure. Will hold lisinopril and chlorthalidone, patient took the medications today. Will order abdominal ultrasound to check for blockage within the kidneys and bladder. Patient will probably need CT scan to further evaluate, will hydrate to see if kidney function will improve. Will monitor blood pressures due to change in medications. Recheck labs in the morning. Patient agreed to hospitalization in [place] but if condition declines is wanting to be transferred to [place]. Karina Mcfarland,DEISI 03/04/2019 Patient is feeling a little better but had some diarrhea today from 10am to 3pm , before having the CT scan. Ultrasound and CT scan reviewed with the patient. No acute findings noted on the tests. Blood pressure holding with metoprolol. Continue to hold Lisinopril and chlorthalidone. Patient had not feeling well for 2 weeks and had diarrhea. Will continue with IV fluids, monitor blood pressure and kidney function. Possible discharge tomorrow. Patient states only drinking three 6 ounces of fluid a day. Will consult with Dr Margie Mcfarland,DEISI 03/05/19 Margie Hernandez MD He does feel better today. No pain. Dr. Wylie did evaluate. Blood pressure acceptable range. Kidney status continues to improve. Continue IV antibiotics and continue off antihypertensives and continue monitoring blood pressure. B12 blood level low and he has had shot. 03/06/19 Margie Hernandez MD No abdomenal pain. Kidney status stabilized but not back to normal. Blood pressure acceptable range. Hypokalemia so given replacement. Will follow up in the clinic next week. All medication changes discussed with him and his Denise.
--- NOTE | 2019-03-06 15:29 | PCM.DCSUM1 ---
Discharge Summary - Hospital Course Diagnosis: Stroke: No - Discharge Data Discharge Date: 03/06/19 Discharge Disposition: Home, Self-Care 01 Condition: Good - Referral to Home Health Primary Care Physician: Karina Mcfarland NP - Discharge Diagnosis/Problem(s) (1) Gastroenteritis, infectious SNOMED Code(s): 84645899 ICD Code: A09 - INFECTIOUS GASTROENTERITIS AND COLITIS, UNSPECIFIED Status : Acute Priority: High Current Visit: Yes (2) Acute renal failure (ARF) SNOMED Code(s): 61311666 ICD Code: N17.9 - ACUTE KIDNEY FAILURE, UNSPECIFIED Status: Acute Current Visit: Yes Qualifiers: Acute renal failure type: with acute tubular necrosis Qualified Code(s): N17.0 - Acute kidney failure with tubular necrosis (3) Abdominal pain SNOMED Code(s): 16114147 ICD Code: R10.9 - UNSPECIFIED ABDOMINAL PAIN Status: Acute Current Visit : Yes Qualifiers: Abdominal location: lower abdomen, unspecified Qualified Code(s): R10.30 - Lower abdominal pain, unspecified (4) Hypertension SNOMED Code(s): 14199085 ICD Code: I10 - ESSENTIAL (PRIMARY) HYPERTENSION Status: Acute Current Visit: Yes Qualifiers: Hypertension type: essential hypertension Qualified Code(s): I10 - Essential (primary) hypertension (5) Reducible left inguinal hernia SNOMED Code(s): 201227963 ICD Code: K40.90 - UNIL INGUINAL HERNIA, W/O OBST OR GANGR, NOT SPCF RECUR Status: Acute Priority: Low Current Visit: Yes (6) Vitamin B 12 deficiency SNOMED Code(s): 022125482 ICD Code: E53.8 - DEFICIENCY OF OTHER SPECIFIED B GROUP VITAMINS Status: Acute Priority: High Current Visit: Yes (7) Hypokalemia SNOMED Code(s): 86027084 ICD Code: E87.6 - HYPOKALEMIA Status: Acute Priority: High Current Visit: Yes - Patient Summary/Data Consults: Consultations 03/05/19 08:00 Consult to Physician [CONS] Routine - Patient Instructions Diet: Regular Diet as Tolerated Activity: As Tolerated Driving: May Drive Today Showering/Bathing: May Shower Other/Special Instructions: We will call you for an appointment at the clinic next week. - Discharge Plan *PRESCRIPTION DRUG MONITORING PROGRAM REVIEWED*: Not Applicable *COPY OF PRESCRIPTION DRUG MONITORING REPORT IN PATIENT DOMINGO: Not Applicable Prescriptions/Med Rec: Ciprofloxacin HCl [Cipro] 500 mg PO BID #6 tablet metroNIDAZOLE [Metronidazole] 500 mg PO TID #16 tablet Home Medications: Home Meds Ascorbic Acid [Vitamin C] 1,000 mg PO DAILY 07/11/15 [History] Aspirin [Halfprin] 1 tab PO DAILY 07/11/15 [History] Citalopram Hydrobromide [Celexa] 20 mg PO DAILY 07/11/15 [History] Simvastatin [Zocor] 40 mg PO BEDTIME 07/11/15 [History] Fenofibrate,Micronized [Fenofibrate] 134 mg PO DAILY 10/22/18 [History] Metoprolol Tartrate 50 mg PO BID 10/22/18 [History] Tadalafil [Cialis] 10 mg PO DAILY PRN 10/22/18 [History] Ubidecarenone [Co Q-10] 2 tab PO DAILY 10/22/18 [History] Cetirizine HCl [Zyrtec] 10 mg PO DAILY 03/03/19 [History] Cholecalciferol (Vitamin D3) [Vitamin D3] 2,000 unit PO DAILY 03/03/19 [History] Ciclopirox/Ure/Camph/Menth/Euc [Ciclopirox 8% Treatment Kit] 1 applic TP DAILY PRN 03/03/19 [History] Fish Oil/DHA/EPA [Fish Oil 1,200 MG] 4 each PO DAILY 03/03/19 [History] Fluticasone Propionate [Flonase] 1 - 2 sprays .XX DAILY 03/03/19 [History] Vitamin E 1,000 unit PO DAILY 03/03/19 [History] Ciprofloxacin HCl [Cipro] 500 mg PO BID #6 tablet 03/06/19 [Rx] metroNIDAZOLE [Metronidazole] 500 mg PO TID #16 tablet 03/06/19 [Rx] Oxygen Therapy Mode: Room Air - Discharge Summary/Plan Comment DC Time >30 min.: No - Patient Data Vitals - Most Recent: Last Vital Signs Temp 98.3 F 03/06/19 12:00 Pulse 64 03/06/19 12:00 Resp 17 03/06/19 12:00 BP 137/71 03/06/19 12:00 Pulse Ox 98 03/06/19 12:00 Weight - Most Recent: 257 lb 11.2 oz I&O - Last 24 hours: Intake & Output 03/06/19 03/06/19 03/06/19 06:59 14:59 22:59 Intake Total 400 600 Output Total 750 Balance 400 -150 Lab Results - Last 24 hrs: Laboratory Results - last 24 hr 03/06/19 03/06/19 Range/Units 07:40 07:40 WBC 7.3 (4.0-10.2) K/uL RBC 3.78 L (4.33-5.41) M/uL Hgb 12.4 L (13.1-16.8) g/dL Hct 36.9 L (39.0-49.0) % MCV 97.6 (84.0-98.0) fL MCH 32.8 (28.2-33.3) pg MCHC 33.6 (31.7-36.0) g/dL RDW 12.9 (11.2-14.1) % Plt Count 252 (150-350) K/uL Neut % (Auto) 63.4 (45.0-80.0) % Lymph % (Auto) 21.4 (10.0-50.0) % [place] % (Auto) 11.6 (2.0-14.0) % Eos % (Auto) 3.3 (0.0-5.0) % Baso % (Auto) 0.3 (0.0-2.0) % Neut # (Auto) 4.65 (1.40-7.00) K/uL Lymph # (Auto) 1.57 (0.50-3.50) K/uL [place] # (Auto) 0.85 (0.00-1.00) K/uL Eos # (Auto) 0.24 (0.00-0.50) K/uL Baso # (Auto) 0.02 (0.00-0.20) K/uL Sodium 140 (136-145) mmol/L Potassium 3.4 L (3.5-5.1) mmol/L Chloride 100 (98-107) mmol/L Carbon Dioxide 29.2 (21.0-32.0) mmol/L BUN 21 H (7-18) mg/dL Creatinine 1.59 H (0.51-1.17) mg/dL Est Cr Clr Drug Dosing 44.47 mL/min Estimated GFR (MDRD) 44 mL/min Glucose 128 H (74-106) mg/dL Calcium 9.8 (8.5-10.1) mg/dL Total Bilirubin 0.5 (0.2-1.0) mg/dL AST 18 (15-37) U/L ALT 23 (12-78) U/L Alkaline Phosphatase 40 L (46-116) IU/L Total Protein 7.3 (6.4-8.2) g/dL Albumin 3.8 (3.4-5.0) g/dL Med Orders - Current: Current Medications Acetaminophen (Tylenol) 650 mg PO Q4H PRN PRN Reason: Pain (Mild 1-3)/fever Fluticasone Propionate (Flonase) 0 gm NASBOTH DAILY [facility] Last Admin: 03/06/19 08:05 Dose: 1 spray Metronidazole 500 mg/ Premix 100 mls @ 100 mls/hr IV Q8H [facility] Last Admin: 03/06/19 12:52 Dose: 100 mls/hr Ciprofloxacin/Dextrose 400 mg/ (Premix) 200 mls @ 200 mls/hr IV Q12H [facility] Last Admin: 03/06/19 13:57 Dose: 200 mls/hr Metoprolol Tartrate (Lopressor) 50 mg PO BID [facility] Last Admin: 03/06/19 08:06 Dose: 50 mg Sodium Chloride (Saline Flush) 10 ml FLUSH ASDIRECTED PRN PRN Reason: Keep Vein Open Last Admin: 03/06/19 12:52 Dose: 10 ml Discontinued Medications Aspirin (Halfprin) 81 mg PO DAILY [facility] Citalopram Hydrobromide (Celexa) 20 mg PO DAILY [facility] Last Admin: 03/04/19 08:21 Dose: 20 mg Cyanocobalamin (Vitamin B12) 1,000 mcg IM ONETIME ONE Stop: 03/04/19 14:31 Last Admin: 03/04/19 15:24 Dose: 1,000 mcg Diatrizoate Meglum/Diatrizoate Sod (Gastrografin 37%) 30 ml PO ONETIME ONE Stop: 03/04/19 09:54 Last Admin: 03/04/19 11:40 Dose: 30 ml Enoxaparin Sodium (Lovenox) 30 mg SUBCUT DAILY@1700 [facility] Last Admin: 03/03/19 17:37 Dose: 30 mg Furosemide (Lasix) 40 mg IVPUSH ONETIME ONE Stop: 03/05/19 08:01 Last Admin: 03/05/19 07:27 Dose: 40 mg Lactated Ringer's (Ringers, Lactated) 1,000 mls @ 125 mls/hr IV ASDIRECTED [facility] Last Admin: 03/04/19 14:44 Dose: 125 mls/hr Ciprofloxacin/Dextrose 400 mg/ (Premix) 200 mls @ 200 mls/hr IV ONETIME ONE Stop: 03/04/19 23:59 Last Admin: 03/04/19 22:53 Dose: 200 mls/hr Ciprofloxacin/Dextrose 400 mg/ (Premix) 200 mls @ 200 mls/hr IV Q12H [facility] Last Admin: 03/05/19 13:13 Dose: Not Given Potassium Chloride (Klor-Con M20) 20 meq PO ONETIME ONE Stop: 03/06/19 12:16 Last Admin: 03/06/19 12:51 Dose: 20 meq Sodium Chloride (Saline Flush) 10 ml FLUSH Q12HR [facility]
== END 2019-03-06 16:00 | disposition home or self-care (01) | DRG 683 ==
LOC: LL.DI 11:32 → LL.MS 12:34
PROVIDERS: ADMIT Nurse Practitioner Family; ATTEND Family Medicine
DX: N17.0 Acute kidney failure with tubular necrosis (principal); R10.30 Lower abdominal pain, unspecified; A09 Infectious gastroenteritis and colitis, unspecified; K40.90 Unilateral inguinal hernia, without obstruction or gangrene, not specified as recurrent; E53.8 Deficiency of other specified B group vitamins; E87.6 Hypokalemia; E78.00 Pure hypercholesterolemia, unspecified; I10 Essential (primary) hypertension; G47.30 Sleep apnea, unspecified; F41.9 Anxiety disorder, unspecified; F32.9 Major depressive disorder, single episode, unspecified; E66.9 Obesity, unspecified; Z86.010 Personal history of colon polyps; Z79.82 Long term (current) use of aspirin; Z79.899 Other long term (current) drug therapy; Z88.0 Allergy status to penicillin; Z88.8 Allergy status to other drugs, medicaments and biological substances; Z68.38 Body mass index [BMI] 38.0-38.9, adult
CPT/HCPCS: 36415; 74019; 74176; 76700; 80053; 82150; 82306; 82550; 82607; 82728; 82746; 83540; 83550; 83605; 83735; 84153; 85025; 86140; A9270-GY; J0744; J1650; J1940; J3420; J3490; J7120; Q9963

== ENCOUNTER 2022-04-25 15:45 | Emergency (ER) | payer MEDICARE ==
[2022-04-25] MEDS ORDERED: Albuterol/Ipratropium 3.0-0.5 MG/3 ML Neb Soln NEB ONE (15:47)
[2022-04-25] MEDS ORDERED: predniSONE 20 MG Tab PO ONE (15:49)
[2022-04-25 16:25] LABS: ANION GAP 9.2 meq/L (7-15); CHLORIDE,CL 103 mmol/L (98-107); ESTIMATED GFR 57 mL/min (>=60); SODIUM,NA 142 mmol/L (136-145)
== END 2022-04-25 17:00 | disposition home or self-care (01) ==
LOC: LL.ED 15:45
DX: J44.1 Chronic obstructive pulmonary disease with (acute) exacerbation (principal); E78.00 Pure hypercholesterolemia, unspecified; I10 Essential (primary) hypertension; Z88.1 Allergy status to other antibiotic agents; Z88.0 Allergy status to penicillin; Z79.899 Other long term (current) drug therapy; Z79.82 Long term (current) use of aspirin
CPT/HCPCS: 36415; 71046; 80053; 85025; 86140; 99284; 99285; J7512; J7620-GY

== ENCOUNTER 2022-04-28 10:18 | Emergency (ER) | payer MEDICARE ==
[2022-04-28 11:12] LABS: CORONAVIRUS COVID-19 NAA NEGATIVE (NEGATIVE); RESPIRATORY SYNCYTIAL VIR NAA NEGATIVE (NEGATIVE)
[2022-04-28] MEDS ORDERED: Albuterol/Ipratropium 3.0-0.5 MG/3 ML Neb Soln NEB ONE (11:15)
[2022-04-28] MEDS ORDERED: Levofloxacin 500 MG Tab PO ONE (12:29)
== END 2022-04-28 13:05 | disposition home or self-care (01) ==
LOC: LL.ED 10:18
DX: J44.1 Chronic obstructive pulmonary disease with (acute) exacerbation (principal); E78.00 Pure hypercholesterolemia, unspecified; I10 Essential (primary) hypertension; E66.9 Obesity, unspecified; Z68.39 Body mass index [BMI] 39.0-39.9, adult; Z87.891 Personal history of nicotine dependence; Z88.1 Allergy status to other antibiotic agents; Z88.0 Allergy status to penicillin; Z79.82 Long term (current) use of aspirin; Z79.899 Other long term (current) drug therapy; Z20.822 Contact with and (suspected) exposure to COVID-19
CPT/HCPCS: 0241U; 71046; 94640; 99285; A9270; J7620-GY

== ENCOUNTER 2022-05-07 08:47 | Emergency (ER) | payer MEDICARE ==
[2022-05-07] MEDS: Albuterol/Ipratropium 3.0-0.5 MG/3 ML Neb Soln NEB ONE ×2 (08:48→11:24)
[2022-05-07] MEDS: Albuterol/Ipratropium 3.0-0.5 MG/3 ML Neb Soln ONE (09:28)
[2022-05-07 09:42] LABS: CORONAVIRUS COVID-19 NAA NEGATIVE (NEGATIVE); RESPIRATORY SYNCYTIAL VIR NAA NEGATIVE (NEGATIVE)
[2022-05-07] MEDS: methylPREDNISolone Sodium Succinate 125 MG/2 ML SDV IVPUSH ONE (10:26)
[2022-05-07] MEDS: Sodium Chloride 0.9% 10 ML Syringe FLUSH PRN (10:26)
== END 2022-05-07 11:45 | disposition home or self-care (01) ==
LOC: LL.ED 08:47
DX: J44.1 Chronic obstructive pulmonary disease with (acute) exacerbation (principal); E78.00 Pure hypercholesterolemia, unspecified; I10 Essential (primary) hypertension; E66.9 Obesity, unspecified; Z68.38 Body mass index [BMI] 38.0-38.9, adult; Z88.1 Allergy status to other antibiotic agents; Z88.0 Allergy status to penicillin; Z88.8 Allergy status to other drugs, medicaments and biological substances; Z79.82 Long term (current) use of aspirin; Z79.899 Other long term (current) drug therapy; Z20.822 Contact with and (suspected) exposure to COVID-19
CPT/HCPCS: 0241U; 36415; 71046; 80053; 83605; 83735; 83880; 84484; 85025; 85379; 94640; 96374; 99285; J2930; J3490; J7620-GY

== ENCOUNTER 2022-09-18 12:30 | Emergency (ER) | payer MEDICARE ==
[2022-09-18] MEDS: Albuterol/Ipratropium 3.0-0.5 MG/3 ML Neb Soln NEB ONE ×2 (12:34→14:40)
[2022-09-18 13:18] LABS: ANION GAP 12.1 meq/L (7-15); CHLORIDE,CL 100 mmol/L (98-107); SODIUM,NA 137 mmol/L (136-145)
[2022-09-18 13:19] LABS: ESTIMATED GFR 68 mL/min (>=60)
[2022-09-18] MEDS: Azithromycin 500 MG in Sodium Chloride 0.9% 250 ML IV ONE (13:19)
[2022-09-18] MEDS: predniSONE 20 MG Tab PO ONE (13:19)
[2022-09-18] MEDS: Sodium Chloride 0.9% 10 ML Syringe FLUSH PRN (13:21)
== END 2022-09-18 15:15 | disposition home or self-care (01) ==
LOC: LL.ED 12:30
DX: J44.1 Chronic obstructive pulmonary disease with (acute) exacerbation (principal); J96.01 Acute respiratory failure with hypoxia; E78.00 Pure hypercholesterolemia, unspecified; I10 Essential (primary) hypertension; E66.9 Obesity, unspecified; Z88.0 Allergy status to penicillin; Z88.8 Allergy status to other drugs, medicaments and biological substances; Z88.1 Allergy status to other antibiotic agents; Z79.82 Long term (current) use of aspirin; Z68.30 Body mass index [BMI] 30.0-30.9, adult; Z79.51 Long term (current) use of inhaled steroids; Z79.899 Other long term (current) drug therapy; Z87.891 Personal history of nicotine dependence
CPT/HCPCS: 36415; 71046; 80053; 80307; 83735; 83880; 84484; 85025; 93005; 96365; 99285-25; J0456; J3490; J7050; J7512; J7620-GY

== ENCOUNTER 2024-01-27 12:41 | Emergency (ER) | payer OTHER ==
[2024-01-27 13:22] LABS: BASOPHILS ABSOLUTE AUTO 0.04 K/uL (0.00-0.20); BASOPHILS PERCENT AUTO 0.5 % (0.0-2.0); EOSINOPHILS ABSOLUTE AUTO 0.68 K/uL (0.00-0.50); EOSINOPHILS PERCENT AUTO 9.2 % (0.0-5.0); HEMATOCRIT 44.5 % (39.0-49.0); HEMOGLOBIN 15.3 g/dL (13.1-16.8); LYMPHOCYTES ABSOLUTE AUTO 1.72 K/uL (0.50-3.50); LYMPHOCYTES PERCENT AUTO 23.2 % (10.0-50.0); MEAN CORPUSCULAR HEMOGLOBIN 32.7 pg (28.2-33.3); MEAN CORPUSCULAR HGB CONC 34.4 g/dL (31.7-36.0); MEAN CORPUSCULAR VOLUME 95.1 fL (84.0-98.0); MONOCYTES PERCENT AUTO 10.8 % (2.0-14.0); NEUTROPHILS ABSOLUTE AUTO 4.16 K/uL (1.40-7.00); NEUTROPHILS PERCENT AUTO 56.3 % (45.0-80.0); PLATELET COUNT,PLT 324 K/uL (150-350); RED BLOOD CELL COUNT 4.68 M/uL (4.33-5.41); RED CELL DISTRIBUTION WIDTH 13.7 % (11.2-14.1); WHITE BLOOD CELL COUNT,WBC 7.4 K/uL (4.0-10.2)
[2024-01-27 14:00] LABS: ALANINE AMINOTRANSFERASE,ALT 42 U/L (12-78); ALBUMIN 3.7 g/dL (3.4-5.0); ALKALINE PHOSPHATASE 45 IU/L (46-116); ANION GAP 10.8 meq/L (7-15); ASPARTATE AMNIOTRANSFERASE,AST 29 U/L (15-37); BILIRUBIN TOTAL 0.5 mg/dL (0.2-1.0); BLOOD UREA NITROGEN,BUN 11 mg/dL (7-18); CALCIUM 9.4 mg/dL (8.5-10.1); CARBON DIOXIDE,CO2 27.2 mmol/L (21.0-32.0); CHLORIDE,CL 103 mmol/L (98-107); CREATININE 1.11 mg/dL (0.51-1.17); ESTIMATED GFR 70 mL/min (>=60); GLUCOSE RANDOM 122 mg/dL (70-99); MAGNESIUM 1.6 mg/dL (1.8-2.4); POTASSIUM,K 3.8 mmol/L (3.5-5.1); PRO B-TYPE NATRIUR PEPT,BNPPRO 64 pg/mL (0-125); PROTEIN TOTAL,TP 7.2 g/dL (6.4-8.2); SODIUM,NA 141 mmol/L (136-145)
[2024-01-27] MEDS: methylPREDNISolone Sodium Succinate 40 MG/1 ML SDV IM ONE (14:22)
== END 2024-01-27 14:32 ==
LOC: LL.ED 12:41
DX: J44.1 Chronic obstructive pulmonary disease with (acute) exacerbation (principal); E83.42 Hypomagnesemia; I10 Essential (primary) hypertension; E78.00 Pure hypercholesterolemia, unspecified; E66.9 Obesity, unspecified; Z87.891 Personal history of nicotine dependence; Z95.1 Presence of aortocoronary bypass graft; Z79.82 Long term (current) use of aspirin; Z79.899 Other long term (current) drug therapy; Z88.0 Allergy status to penicillin; Z88.1 Allergy status to other antibiotic agents; Z88.8 Allergy status to other drugs, medicaments and biological substances
CPT/HCPCS: 36415; 71046; 80053; 83735; 83880; 84484; 85025; 85379; 93005; 93010; 96372; 99284; 99285; J2919